=== PATIENT | female | born 1935 | race Caucasian/White ===

== ENCOUNTER 2017-09-08 19:48 | Inpatient (IN) | payer OTHER ==
[~2017-09-08 19:48] MED LIST: ACTOS45 MG PO; ALEVE220 MG PO; ASPIR 8181 M1 PO; CO Q-10100 MG PO; CRANBERRY425 MG PO; ENOXAPARIN30 MG/0.3 SC; FOSAMAX70 MG PO; FUROSEMIDE20 MG PO; IRON325 M1 PO; LISINOPRIL5 MG PO; LO-DOSE ASPIRIN81 M1 PO; METFORMIN HCL850 MG PO; METOPROLOL SUC100 MG PO; METOPROLOL SUCC50 MG PO; MIRALAX17 GM PO; PRESERVISION A1 EAC2 PO; ROXICODONE5 MG PO; TRIAMCINOLONE A15 GM TP; TYLENOL REGULA325 MG PO; ULTRAM50 MG PO; VITAMIN D31000 UNI2 PO
[2017-09-08 20:18] LABS: BASOPHIL (%) 0.4 % (0-1); BASOPHIL COUNT 0.1 K/uL (0-0.1); EOSINOPHIL (%) 0.5 % (0-5); EOSINOPHIL COUNT 0.1 K/uL (0-0.3); HEMATOCRIT 29.6 % (36.0-46.0); HEMOGLOBIN 9.9 G/DL (11.9-15.5); IMMATURE GRANULOCYTE (%) 2.1 % (0.0-0.7); LYMPHOCYTE COUNT 2.1 K/uL (1.0-2.8); MCH 30.7 PG (29.0-34.0); MCHC 33.4 G/DL (30.0-36.0); MCV 91.9 FL (83-99); MONOCYTE (%) 5.2 % (3-12); MONOCYTE COUNT 0.7 K/uL (0-0.8); NEUTROPHIL (%) 76.8 % (45-76); NEUTROPHIL COUNT 10.7 K/uL (1.8-6.4); PLATELET COUNT 191 K/uL (156-360); RBC DIS.WIDTH-CV 13.2 % (11.8-14.6); RBC DIS.WIDTH-SD 44.9 % (39-53); RED BLOOD COUNT 3.22 M/uL (3.80-5.20)
[2017-09-08 20:20] LABS: AMYLASE 85 IU/L (1-118); CHLORIDE 98 mEq/L (99-109); POTASSIUM 4.1 mEq/L (3.7-5.4); SODIUM 134 mEq/L (136-147)
[2017-09-08 20:22] LABS: GLUCOSE 267 mg/dL (70-99)
[2017-09-08 20:25] LABS: SERUM ETHYL ALCOHOL < 10 mg/dL
[2017-09-08 20:26] LABS: CREATININE 1.5 mg/dL (0.6-1.3); GFR ESTIMATE (CALCULATED) 35 mL/min/
[2017-09-08 20:27] LABS: UREA NITROGEN (BUN) 31 mg/dL (9-23)
[2017-09-08 20:29] LABS: LIPASE 111 U/L (1.0-51.0)
[2017-09-08 22:21] LABS: APPEARANCE CLOUDY ((CLEAR)); BILIRUBIN NEGATIVE; BLOOD LARGE; COLOR YELLOW ((YELLOW)); GLUCOSE (STRIP) 150; KETONES NEGATIVE; LEUKOCYTES MODERATE; NITRITE NEGATIVE; PROTEIN (STRIP) 30; SPECIFIC GRAVITY 1.019 (1.000-1.030); UROBILINOGEN 0.2 MG/DL (0.2-1.0)
[2017-09-08 22:35] LABS: AMPHETAMINE NEGATIVE (500 ng/mL); BARBITURATES NEGATIVE (200 ng/mL); BENZODIAZEPINES NEGATIVE (150 ng/mL); BUPRENORPHINE NEGATIVE (10 ng/mL); COCAINE NEGATIVE (150 ng/mL); METHADONE NEGATIVE (200 ng/mL); METHAMPHETAMINE NEGATIVE (500 ng/mL); OPIATES (MORPHINE) NEGATIVE (100 ng/mL); OXYCODONE NEGATIVE (100 ng/mL); PHENCYCLIDINE NEGATIVE (25 ng/mL); PROPOXYPHENE NEGATIVE (300 ng/mL); THC CANNABINOIDS NEGATIVE (50 ng/mL); TRICYCLIC ANTIDEPRESSANTS NEGATIVE (300 ng/mL)
[2017-09-08 22:55] LABS: BACTERIA RARE /HPF; EPITHELIAL CELLS RARE /HPF; MUCUS NONE SEEN /LPF; RED BLOOD CELLS TNTC /HPF (0-5); UCUL ADDED? YES
[2017-09-09 17:54] VITALS: BP 00/00
== END 2017-09-09 19:50 | DRG 964 ==
LOC: TRA → EDOF 22:40 → 5EAST 22:40 → ENRESERV 22:51 → 5EAST 09-09 00:02
PROVIDERS: Emergency Medicine
PROC: 30233N1 Transfusion of Nonautologous Red Blood Cells into Peripheral Vein, Percutaneous Approach (ICD-10-PCS; principal; 2017-09-08)
DX: S36.113A Laceration of liver, unspecified degree, initial encounter (principal); S27.2XXA Traumatic hemopneumothorax, initial encounter; D62 Acute posthemorrhagic anemia; S22.43XA Multiple fractures of ribs, bilateral, initial encounter for closed fracture; S27.321A Contusion of lung, unilateral, initial encounter; E87.1 Hypo-osmolality and hyponatremia; S32.591A Other specified fracture of right pubis, initial encounter for closed fracture; E11.22 Type 2 diabetes mellitus with diabetic chronic kidney disease; S42.031A Displaced fracture of lateral end of right clavicle, initial encounter for closed fracture; S37.90XA Unspecified injury of unspecified urinary and pelvic organ, initial encounter; V89.2XXA Person injured in unspecified motor-vehicle accident, traffic, initial encounter; I12.9 Hypertensive chronic kidney disease with stage 1 through stage 4 chronic kidney disease, or unspecified chronic kidney disease; N18.3 Chronic kidney disease, stage 3 (moderate); I25.119 Atherosclerotic heart disease of native coronary artery with unspecified angina pectoris; M81.0 Age-related osteoporosis without current pathological fracture; R33.9 Retention of urine, unspecified; Z51.5 Encounter for palliative care; Z66 Do not resuscitate; Y92.410 Unspecified street and highway as the place of occurrence of the external cause; Z79.82 Long term (current) use of aspirin; Z79.83 Long term (current) use of bisphosphonates; Z79.84 Long term (current) use of oral hypoglycemic drugs
CPT/HCPCS: 70450; 71260; 72125; 72129; 72132; 74177; 80048; 81003; 82150; 83690; 85025; 86850; 86900; 86901; 86920; 87077; 87086; 87147; 87186; 93005; 99281; 99285; G0480; J2060; J2270; J2405; J3010; P9016